=== PATIENT | female | born 1950 | race Caucasian/White ===

== ENCOUNTER 2020-05-16 14:54 | Emergency (ER) | payer MEDICARE, OTHER ==
[2020-05-16 14:57] VITALS: BP 134/68; PULSE 64
--- NOTE | 2020-05-16 15:08 | EDM.PDOC ---
ED HPI GENERAL MEDICAL PROBLEM - General Chief Complaint: Lower Extremity Injury/Pain Stated Complaint: R FOOT PAIN Time Seen by Provider: 05/16/20 15:00 Source of Information: Reports: Patient, Family (), Old Records ([facility] chart/EMR) History Limitations: Reports: No Limitations - History of Present Illness INITIAL COMMENTS - FREE TEXT/NARRATIVE: The patient was brought to the emergency room via private automobile by her for 7/10 at rest and 10/10 with standing right foot pain after she fell about 8 feet from a ladder at home. Note that she was painting when she slipped off the ladder scraping her back on the ladder, however no other significant fall, head injury, loss of consciousness, neck/back pain, paresthesias, neurological deficits, joint instability, hip/knee pain or other complaints or injuries. She has not injured this foot in the past. No treatment or medications have been taken or conducted to this point. The patient has not been able to bear weight on her foot since the above injury and did use her daughter's crutches to come to this facility. No recent history of abdominal pain, heartburn, nausea, diarrhea, melena, gross hematochezia, or any food intolerance, including fatty foods, etc.. The patient also denies any recent fever, cough, wheezing, dyspnea, etc.. Onset: Today, Sudden Onset Date: 05/16/20 Onset Time: 14:15 Duration: Constant Location: Reports: Lower Extremity, Right. Denies: Head, Face, Neck, Chest, Abdomen, Back, Pelvis, Upper Extremity, Left, Upper Extremity, Right, Lower Extremity, Left, Radiates to Quality: Reports: Throbbing Severity: Moderate Improves with: Reports: Rest Worsens with: Reports: Movement Context: Reports: Trauma (As above) Associated Symptoms: Denies: Confusion, Chest Pain, Cough, Diaphoresis, Fever/Chills, Headaches, Loss of Appetite, Malaise, Nausea/Vomiting, Shortness of Breath, Syncope, Weakness Treatments BLENDER / COOK: Reports: Other (see below) (None) - Related Data Allergies Allergy/AdvReac Type Severity Reaction Status Date / Time Dairy Products Allergy Cannot Verified 05/16/20 15:06 Remember egg Allergy Cannot Verified 05/16/20 15:06 Remember gluten Allergy Cannot Verified 05/16/20 15:06 Remember levofloxacin [From Levaquin] Allergy Muscle Verified 05/16/20 15:06 Weakness Home Meds: Home Meds Aspirin [Halfprin] 81 mg PO QAM 12/22/15 [History] Cholecalciferol (Vitamin D3) [Vitamin D3] 2,000 unit PO QAM 12/22/15 [History] Garlic 1,000 mg PO QAM 12/22/15 [History] Levothyroxine [Synthroid] 88 mcg PO QAM 12/22/15 [History] Lisinopril 5 mg PO QPM 12/22/15 [History] Lisinopril 20 mg PO QAM 12/22/15 [History] Multivitamin [Multivitamins] 1 each PO QAM 12/22/15 [History] [place]-3 Fatty Acids [Fish Oil] 1,000 mg PO QAM 12/22/15 [History] amLODIPine [Norvasc] 5 mg PO BEDTIME 12/22/15 [History] Escitalopram [Lexapro] 10 mg PO DAILY 05/16/20 [History] Non-Formulary Medication [NF Drug] 1 drop BUCCAL BID 05/16/20 [History] Past Medical History HEENT History: Reports: Allergic Rhinitis, Sinusitis, Other (See Below). Denies: Cataract, Glaucoma, Hard of Hearing, Impaired Vision, Macular Degeneration, Otitis Media, Retinal Detachment Other HEENT History: Allergic rhinitis and sinusitis. Cardiovascular History: Reports: High Cholesterol, Hypertension. Denies: Afib, Aneurysm, Arrhythmia, Blood Clots/VTE/DVT, CAD, Heart Failure, Heart Murmur, [place], PVD, Syncope Respiratory History: Reports: Bronchitis, Recurrent, COPD, Pulmonary Fibrosis, Other (See Below). Denies: Asthma, Intubation, Previous, PE, Pneumothorax, Sleep Apnea, TB Other Respiratory History: COPD and pulmonary fibrosis by chest x-ray with no current medical therapy required. Gastrointestinal History: Reports: Other (See Below). Denies: Celiac Disease, Cholelithiasis (Avoid that now), Chronic Constipation, Chronic Diarrhea, Colon Polyp, Fecal Incontinence ( and you do not have diarrhea with that normally uses along with), Gastritis, GERD, GI Bleed (Just did not feel well), Hepatitis, Inflammatory Bowel Disease, Irritable Bowel Syndrome, Jaundice, Pancreatitis, PUD Other Gastrointestinal History: Multiple food allergies, including gluten, eggs, dairy, etc. Genitourinary History: Reports: Renal Calculus (You did), Other (See Below) ( and you know what side it was). Denies: Acute Renal Failure, Chronic Renal Insuffiency, Retention, Urinary, STD, Urinary Incontinence, UTI, Recurrent Other Genitourinary History: History of urolithiasis in about 2005 with spontaneous passageside unknown. SUGAR MIXER History: Reports: None, . Denies: Dysfunctional Uterine Bleeding, Endometriosis, Fibroids, Spontaneous : 3 Para: 3 LMP (Approximate): Other (See Below) Other SUGAR MIXER History: Menopause in her early 50s. Full term without complications during pregnancies or deliveries. Musculoskeletal History: Reports: Arthritis, Back Pain, Chronic, Fracture, Other (See Below). Denies: Gout, Neck Pain, Chronic, Osteoarthritis, Osteoporosis, RA, SLE Other Musculoskeletal History: Mild to moderate scoliosis. Right wrist fracture in 1980 with no surgery required. Neurological History: Reports: Neuropathy, Peripheral, Other (See Below). Denies: Cerebral Aneurysms, Concussion, CVA, Head Trauma, Migraines, MS, Parkinson's, Seizure, TIA, Vertigo Other Neuro History: Bbilateral upper and head fine benign resting tremors with negative work-up as below. Psychiatric History: Reports: Anxiety, Depression. Denies: Abuse, Victim of, ADD, ADHD, Addiction, Psych Hospitalization(s), PTSD, Suicide Attempt, Suicidal Ideation Endocrine/Metabolic History: Reports: Hypothyroidism, Other (See Below). Denies: Diabetes, Gestational, Diabetes, Type I, Diabetes, Type II, Diabetes Mellitus, Type 3c, IDDM, Obesity/BMI 30+, Osteopenia, Osteoporosis Other Endocrine/Metabolic History: Graves' disease treated treated with radioactive iodine therapy in 1980. Hematologic History: Reports: None. Denies: Anemia, Blood Transfusion(s), Iron Deficiency Immunologic History: Reports: None. Denies: AIDS, HIV, SLE Oncologic (Cancer) History: Reports: Other (See Below). Denies: Breast, Cervix, Colon, Leukemia, Lymphoma, Malignant Melanoma, Non-Hodgkin's Lymphoma, Ovarian, Thyroid, Uterine Other Oncologic History: Unknown type of skin cancer in the left thigh with excision as below. Dermatologic History: Reports: None. Denies: Eczema, Psoriasis - Infectious Disease History Infectious Disease History: Reports: Chicken Pox, Measles, Mumps. Denies: C- Difficile, Meningitis, Mononucleosis, MRSA, Pertussis (Whooping Cough), Rheumatic Fever, Rubella, Scarlet Fever, Shingles, TB, VRE - Past Surgical History Head Surgeries/Procedures: Reports: None HEENT Surgical History: Reports: Adenoidectomy, Oral Surgery, Tonsillectomy, Other (See Below). Denies: Cataract Surgery, Eye Surgery, Laser Surgery, LASIK, Myringotomy w Tube(s), Naso-Sinus Surgery Other HEENT Surgeries/Procedures: Tonsillectomy and adenoidectomy at age 7. Dental extractions. Cardiovascular Surgical History: Reports: None. Denies: Varicose Respiratory Surgical History: Reports: None. Denies: Thoracentesis GI Surgical History: Reports: Appendectomy, Colonoscopy, Other (See Below). Denies: Cholecystectomy, EGD, Hernia, Abdominal, Hernia, Inguinal, Hernia Repair/Other, Polypectomy Other GI Surgeries/Procedures: Normal colonoscopy on 12/22/2015. Appendectomy at age 18. Female Surgical History: Reports: Breast Biopsy, Other (See Below). Denies: Section, D&C, Hysterectomy, Oophorectomy, Salpingo-Oophorectomy, Tubal Ligation Other Female Surgeries/Procedures: Bilateral breast cyst aspirations and biopsies x3 for benign disease in the . Endocrine Surgical History: Reports: None. Denies: Thyroid Biopsy Neurological Surgical History: Reports: None. Denies: C-Spine, Discectomy, Laminectomy, Lumbar Spine, Sacral Spine, Spinal Fusion, Thoracic Spine, Vertebroplasty Musculoskeletal Surgical History: Reports: None, Carpal Tunnel. Denies: Arthroscopic Procedure, Ganglion Cyst, Joint Replacement, ORIF, Shoulder Surgery Oncologic Surgical History: Reports: None Dermatological Surgical History: Reports: Other (See Below) Other Dermatological Surgeries/Procedures: Skin excision of unknown type of skin cancer from the left thigh in 2016. Social & Family History - Tobacco Use Smoking Status *Q: Never Smoker Tobacco Use Within Last Twelve Months: No Used Tobacco, but Quit: No Smoking Cessation Information Provided To Patient: No Second Hand Smoke Exposure: No Second Hand Smoke Education Provided: No - Caffeine Use Caffeine Use: Denies: Coffee, Energy Drinks, Soda, Tea - Alcohol Use Alcohol Use History: No Days Per Week of Alcohol Use: 0 Number of Drinks Per Day: 0 Total Drinks Per Week: 0 Alcohol Use in Last Twelve Months: No - Recreational Drug Use Recreational Drug Use: No Drug Use in Last 12 Months: No Recreational Drug Type: Denies: Amphetamines (Speed), Cocaine, Heroin, Inhalants (Glues, Solvents, Aerosols), LSD (Acid), Methamphetamine, Oxycodone - Living Situation & Occupation Living situation: Reports: (1969, 3 children), with Family Occupation: Retired (Retired from housekeeping at age 68, 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 ED EXAM, GENERAL - Physical Exam Exam: See Below Exam Limited By: No Limitations General Appearance: Alert, WD/WN, No Apparent Distress Head: Atraumatic, Normocephalic Neck: Normal Inspection, Supple, Non-Tender, Full Range of Motion. No: Lymphadenopathy (L), Lymphadenopathy (R), Thyromegaly Respiratory/Chest: No Respiratory Distress, Lungs Clear, Normal Breath Sounds, No Accessory Muscle Use, Chest Non-Tender. No: Pleural Rub, Retractions Cardiovascular: Normal Peripheral Pulses, Regular Rate, Rhythm, No Edema, No Gallop, No JVD, No Murmur, No Rub. No: Gallop/S3, Gallop/S4, Friction Rub Peripheral Pulses: 2+: Radial (L), Radial (R), Dorsalis Pedis (R) GI/Abdominal: Normal Bowel Sounds, Soft, Non-Tender, No Organomegaly, No Distention, No Abnormal Bruit, No Mass, Pelvis Stable. No: Guarding (Female) Exam: Deferred Rectal (Female) Exam: Deferred Back Exam: Full Range of Motion, CVA Tenderness (L), Other (Moderate mid scoliosis with 15 cm diameter superficial abrasion over the mid aspect of her b ack with no foreign body, etc.). No: CVA Tenderness (R), Decreased Range of Motion, Muscle Spasm, Paraspinal Tenderness, Vertebral Tenderness Extremities: Leg Pain (Mild to moderate palpation pain over the mid lateral dorsal aspect of the right foot with mild ecchymosis and 4 cm area of mild swelling with no crepitation, dislocation, deformity, etc. Right knee, ankle, and hip show no evidence of abnormalities including instability, effusion, tenderness, etc.), Limited Range of Motion (Right foot secondary to foot sprain) Neurological: Alert, Oriented, CN II-XII Intact, Normal Cognition, Normal Reflexes, No Motor/Sensory Deficits. No: Normal Gait (Limited weight bearing of the right foot secondary to injury) Psychiatric: Normal Affect, Normal Mood Skin Exam: Warm, Dry, Intact, Ecchymosis, Wound/Incision (Back abrasion as above). No: Diaphoretic Lymphatic: No Adenopathy ED TRAUMA EXTREMITY PROCEDURES - Splinting Right Lower Extremity Splint Site: Right foot Pre-Procedure NV Status: Normal Post-Procedure NV Status: Normal Splint Material: Other (Jordan wrap with postoperative shoe) Splint Design: Other (As above) Applied & Form Fitted By: Nurse Provider Post-Splint Application NV Check: NV Status Normal, Good Position Complications: No Course - Vital Signs Last Recorded V/S: Last Vital Signs Temp 36.5 C 05/16/20 14:57 Pulse 64 05/16/20 14:57 Resp 16 05/16/20 14:57 BP 134/68 05/16/20 14:57 Pulse Ox 100 05/16/20 14:57 Vital Signs - 24 hr 05/16/20 14:57 Temperature [ 36.5 C Temporal] Pulse, 64 Peripheral [ Pulse Oximetry] Respiratory 16 Rate Blood Pressure 134/68 [Right Upper Arm] O2 Sat by Pulse 100 Oximetry - Orders/Labs/Meds Orders: Active Orders 24 hr Category Date Time Status Foot Comp Min 3V Rt [CR] Stat Exams 05/16/20 15:10 Ordered Durable Medical Equipment for Discharge [DME for Oth 05/16/20 15:50 Ordered Discharge] [COMM] Routine Durable Medical Equipment for Discharge [DME for Oth 05/16/20 15:51 Ordered Discharge] [COMM] Routine Obtain Past Medical Record [OM.PC] Routine Oth 05/16/20 15:10 Active Labs: None Meds: Medications Discontinued Medications Generic Name Dose Route Start Last Admin Trade Name Freq PRN Reason Stop Dose Admin Ketorolac Tromethamine 60 mg 05/16/20 15:44 05/16/20 15:50 Toradol IM 05/16/20 15:45 60 mg ONETIME ONE Administration - Radiology Interpretation Free Text/Narrative:: X-ray report/over-read of x-rays of the right foot, complete, was normal. Departure - Departure Time of Disposition: 16:05 Disposition: Home, Self-Care 01 Condition: Good Clinical Impression: Abrasion, Mixed anxiety and depressive disorder, Foot pain, right, COPD (chronic obstructive pulmonary disease), COPD Hypertension Qualifiers: Hypertension type: essential hypertension Qualified Code(s): I10 - Essential (primary) hypertension Hyperlipidemia Qualifiers: Hyperlipidemia type: unspecified Qualified Code(s): E78.5 - Hyperlipidemia, unspecified Osteoarthritis Qualifiers: Osteoarthritis location: multiple joints Osteoarthritis type: primary Qualified Code(s): M89.49 - Other hypertrophic osteoarthropathy, multiple sites Allergic rhinitis Qualifiers: Allergic rhinitis trigger: other Allergic rhinitis seasonality: non-seasonal Qualified Code(s): J30.89 - Other allergic rhinitis - Discharge Information *PRESCRIPTION DRUG MONITORING PROGRAM REVIEWED*: Not Applicable *COPY OF PRESCRIPTION DRUG MONITORING REPORT IN PATIENT AVIS: Not Applicable Instructions: Foot Sprain Referrals: Debbie Murphy PA [Primary Care Provider] - Forms: ED Department Discharge Additional Instructions: 1. Follow up with your regular provider in 10-14 days as needed, if symptoms persist. Bring these discharge instructions with you to that visit.. 2. BenGay or equivalent, heating pad, and/or ice packs as directed. 3. Ice packs and foot elevation as discussed 4. Tylenol 650 mg by mouth every 4 hours and/or OTC ibuprofen 2-3 tabs by mouth every 6 hours with food as directed./needed. You may stagger these medications for 48-72 hours only, which essentially means that you are receiving a pain medication about every 2 hours. Next dose of ibuprofen as needed in 6 hours secondary to medications given in the emergency room 5. Antibacterial soap wash/soak with subsequent antibacterial dressing such as Neosporin, etc. as directed 2 times per day until the wound completely heals. Keep the area clean and dry with activity restrictions as discussed. Never use hydrogen peroxide for wound care. 6. Use crutches, Jordan wrap, and postoperative shoe as discussed with advanced weightbearing as tolerated 7. Immediately after this visit verify that your cellular telephone's voicemail has been activated and is empty. Also verify that your home telephone's answering machine is operating properly and has space to receive messages. Note that it is sometimes necessary for us to be able to contact you at a later date to discuss your medical care. 8. Please remember that we are ALWAYS here for you and want to answer any questions you may have. Feel free to call the hospital any time and we call you back HOWIE. Sepsis Event Note (ED) - Evaluation Sepsis Screening Result: No Definite Risk - Focused Exam Vital Signs: Vital Signs Temp Pulse Resp BP Pulse Ox 05/16/20 14:57 36.5 C 64 16 134/68 100 - Problem List & Annotations (1) Foot pain, right SNOMED Code(s): 64891999 Code(s): M79.671 - PAIN IN RIGHT FOOT Status: Acute Priority: High Current Visit: Yes Onset Date: 05/16/20 Annotation/Comment:: Minor right foot sprain with negative x-rays as above. Symptomatic relief as per discharge instructions. IM Toradol given. Activity restrictions were discussed. The patient already has crutches. Jordan wrap and postoperative shoe applied by the nurse as above. (2) Abrasion SNOMED Code(s): 394502733 Code(s): T14.8XXA - OTHER INJURY OF UNSPECIFIED BODY REGION, INITIAL ENCOUNTER Status: Acute Priority: High Current Visit: Yes Onset Date: 05/16/20 Annotation/Comment:: Minor back abrasion as above. Wound care discussed. (3) Allergic rhinitis SNOMED Code(s): 56661545 Code(s): J30.9 - ALLERGIC RHINITIS, UNSPECIFIED Status: Chronic Priority: Medium Current Visit: Yes Annotation/Comment:: Stable by history. Qualifiers: Allergic rhinitis trigger: other Allergic rhinitis seasonality: non- seasonal Qualified Code(s): J30.89 - Other allergic rhinitis (4) Hyperlipidemia SNOMED Code(s): 44063788 Code(s): E78.5 - HYPERLIPIDEMIA, UNSPECIFIED Status: Chronic Priority: Medium Current Visit: Yes Annotation/Comment:: Not currently under therapy. Qualifiers: Hyperlipidemia type: unspecified Qualified Code(s): E78.5 - Hyperlipidemia, unspecified (5) Hypertension SNOMED Code(s): 18016593 Code(s): I10 - ESSENTIAL (PRIMARY) HYPERTENSION Status: Chronic Priority: Medium Current Visit: Yes Annotation/Comment:: Stable in the emergency room. Qualifiers: Hypertension type: essential hypertension Qualified Code(s): I10 - Essential (primary) hypertension (6) Mixed anxiety and depressive disorder SNOMED Code(s): 327468273 Code(s): F41.8 - OTHER SPECIFIED ANXIETY DISORDERS Status: Chronic Priority: Medium Current Visit: Yes Annotation/Comment:: Stable by history and in the emergency room. (7) Osteoarthritis SNOMED Code(s): 266543445 Code(s): M19.90 - UNSPECIFIED OSTEOARTHRITIS, UNSPECIFIED SITE Status: Chronic Priority: Medium Current Visit: Yes Annotation/Comment:: Otherwise stable by history with no other injury Qualifiers: Osteoarthritis location: multiple joints Osteoarthritis type: primary Qualified Code(s): M89.49 - Other hypertrophic osteoarthropathy, multiple sites (8) COPD (chronic obstructive pulmonary disease) SNOMED Code(s): 60456580 Code(s): J44.9 - CHRONIC OBSTRUCTIVE PULMONARY DISEASE, UNSPECIFIED Status: Chronic Priority: Medium Current Visit: Yes Annotation/Comment:: No current medical therapy required. No history of fever or bronchitic type symptoms. Qualifiers: COPD type: emphysema Emphysema type: panlobular Qualified Code(s): J43.1 - Panlobular emphysema - Problem List Review Problem List Initiated/Reviewed/Updated: Yes - My Orders Last 24 Hours: My Active Orders 05/16/20 15:10 Foot Comp Min 3V Rt [CR] Stat Obtain Past Medical Record [OM.PC] Routine 05/16/20 15:50 Durable Medical Equipment for Discharge [DME for Discharge] [COMM] Routine 05/16/20 15:51 Durable Medical Equipment for Discharge [DME for Discharge] [COMM] Routine - Assessment/Plan Last 24 Hours: My Active Orders 05/16/20 15:10 Foot Comp Min 3V Rt [CR] Stat Obtain Past Medical Record [OM.PC] Routine 05/16/20 15:50 Durable Medical Equipment for Discharge [DME for Discharge] [COMM] Routine 05/16/20 15:51 Durable Medical Equipment for Discharge [DME for Discharge] [COMM] Routine Assessment:: As above Plan: As above. Extensive precautions were given to the patient and her , who are in agreement with the treatment plan. See Patient Instructions for further treatment and plan.
[2020-05-16] MEDS ORDERED: Ketorolac 60 MG/2 ML SDV IM ONE (15:44)
== END 2020-05-16 16:10 | disposition home or self-care (01) ==
LOC: LL.ED 14:54
DX: S90.31XA Contusion of right foot, initial encounter (principal); S20.419A Abrasion of unspecified back wall of thorax, initial encounter; J30.89 Other allergic rhinitis; M89.48 Other hypertrophic osteoarthropathy, other site; E78.5 Hyperlipidemia, unspecified; J44.9 Chronic obstructive pulmonary disease, unspecified; I10 Essential (primary) hypertension; F41.8 Other specified anxiety disorders; Z91.011 Allergy to milk products; Z91.012 Allergy to eggs; Z91.048 Other nonmedicinal substance allergy status; Z88.1 Allergy status to other antibiotic agents; Z79.82 Long term (current) use of aspirin; Z79.899 Other long term (current) drug therapy; W11.XXXA Fall on and from ladder, initial encounter; Y92.009 Unspecified place in unspecified non-institutional (private) residence as the place of occurrence of the external cause
CPT/HCPCS: 73630-RT; 96372; 99283-25; J1885